=== PATIENT | female | born 1960 | race Caucasian/White ===

== ENCOUNTER 2019-02-25 03:28 | Inpatient (IN) ==
[2019-02-25] MEDS ORDERED: methylPREDNISolone 125 MG/2 ML VIAL IV STA (03:41)
[2019-02-25] MEDS ORDERED: ALBUT/IPRATROP 3MG/0.5MG NEB 3 ML VIAL NEB ONE (03:43)
[2019-02-25 04:05] LABS: Basophils # (auto) 0.02 K/uL (0-0.2); Basophils % (auto) 0.2 %; Hematocrit (blood only) 41.7 % (37-47); Hemoglobin 14.6 g/dL (12.0-16.0); Immature Granulocytes # (auto) 0.02 K/uL (0.00-0.02); Immature Granulocytes % (auto) 0.2 %; Lymphocytes # (auto) 2.19 K/uL (1.2-3.4); Lymphocytes % (auto) 22.2 %; Mean Corpuscular Volume 86.3 fL (80-100); Mean Platelet Volume 11.8 fL (7.4-10.4); Monocytes # (auto) 1.37 K/uL (0.11-0.59); Monocytes % (auto) 13.9 %; Neutrophils # (auto) 6.05 K/uL (1.4-6.5); Neutrophils % (auto) 61.5 %; Platelet Count 288 K/uL (130-400); RDW Coefficient of Variation 12.7 % (11.5-14.5); RDW Standard Deviation 40.2 fL (36.4-46.3); Red Blood Count 4.83 M/uL (4.2-5.4); White Blood Count 9.85 K/uL (4.8-10.8)
[2019-02-25 04:26] LABS: Base Excess VBG 3.6 mEq/L; HCO3 VBG 30 mmol/L; PCO2 VBG 54 mmHg (38-50); PO2 VBG 31 mmHg; pH VBG 7.37 (7.36-7.41)
[2019-02-25 04:28] LABS: Albumin Level 3.8 gm/dl (3.4-5.0); BUN Creatinine Ratio 12.3 (10-20); Bilirubin Direct 0.2 mg/dl (0-0.2); Calcium 9.2 mg/dl (8.5-10.1); Creatinine Clr Calc Pharmacy 68.8 ml/min; Est GFR (African American) 72.9; Est GFR (Non-African American) 62.9; Magnesium 1.8 mg/dl (1.8-2.4); Oxygen Saturation VBG < 60.0 %; Potassium 3.6 mmol/L (3.5-5.1)
[2019-02-25 04:36] LABS: Bilirubin,Total 0.5 mg/dl (0.2-1); Total Protein 7.6 gm/dl (6.4-8.2); Troponin I 0.053 ng/ml (0-0.045)
[2019-02-25 04:46] LABS: Influenza A virus by PCR Neg for Influ A (Neg); Influenza B virus by PCR Neg for Influ B (Neg)
[2019-02-25] MEDS ORDERED: OPTIRAY 320 125ml IV PRN (05:12)
[2019-02-25] MEDS ORDERED: LEVOFLOXACIN/D5W 750 MG/150 ML BAG IV STA (05:34)
[2019-02-25] MEDS ORDERED: HYDROCODONE/HOMATROPINE SYRUP 5MG/1.5MG 5ML UDP PO STA (05:40)
--- NOTE | 2019-02-25 07:30 | XRay Report ---
XR chest 1V portable HISTORY: 58 years-old Female Shob acute shortness of breath COMPARISON: CTA chest of same day TECHNIQUE: Portable AP view of the chest FINDINGS: The cardiomediastinal and hilar silhouettes are within normal limits. Mild central bronchial wall thi ckening. No pneumothorax, pleural effusion, overt pulmonary edema or focal airspace consolidation. IMPRESSION: 1. No focal airspace consolidation to suggest pneumonia. 2. Mild bronchial wall thickening suggestive of reactive airway disease or bronchitis. The above report was generated using voice recognition software. It may contain grammatical, syntax o r spelling errors. Electronically signed by: Al Alexandra M.D. 02/25/2019 7:29 AM
--- NOTE | 2019-02-25 07:36 | Emergency Department Note ---
Entered by Celena Lozano acting as a scribe for ED Provider Note Name: Rosangela Dueñas Age: 58 F Arrives Via: Private vehicle Informant: The patient CC: Shortness of breath HPI: A 58 year old female arrives for evaluation of worsening shortness of breath starting 1 hour ago. The patient reports that she is severely short of breath. She states that she has had a severe cough for the past day. She notes that she is nauseous. The patient reports that she has been using her nebulizer for the past day that has not helped her symptoms. She states that she tested positive for influenza on 02/11/19. She notes that she is a type 1 diabetic and that her sugars have been normal. She adds that she recently went to the ED for these symptoms but that they have never been this bad before. She denies chest pain, leg swelling, abnormal urinary problems and abnormal bowel movements. She denies recent travel. ROS: See above HPI for pertinent positives & negatives. A total of 10 systems reviewed and were otherwise negative. Past Medical History: Diabetes Past Surgical History: N/A Family History: N/A Social History: Feels safe at home. Never a smoker. Home Medications: Synthroid 125 mcg PO, Novolog Pump 1 dose continuous SUBCUT. Allergies Penicillins Physical: Vitals: BP: 159/95, Pulse: 85, Resp: 15, Temp: 97.5F, O2 Sat: 96, Delivery: CPAP Exam: GENERAL: Patient is severely unwell appearing and in severe distress. EYES: No scleral icterus, unremarkable pupils. ENT: Mucous membranes moist, no nasal congestion. NECK: No masses appreciated, no meningismus, trachea is midline. RESPIRATORY: Clear to auscultation and equal bilaterally. No wheeze, no rhonchi. Dyspnic, tachypnic, very tight lung sounds throughout with expiratory wheezing. CARDIOVASCULAR: Tachycardic rate. Regular rhythm. No murmurs, rubs, gallops appreciated. GASTROINTESTINAL: Abdomen soft, non-tender, no peritonitis. Bowel sounds positive. No masses appreciated. BACK: No midline tenderness, no CVA tenderness EXTREMITIES: Normal motion all extremities, no cyanosis, no edema. NEUROLOGIC: Alert and oriented, no acute motor or sensory deficits, no focal weakness, cranial nerves grossly intact. SKIN: No rash, no jaundice, no diaphoresis. ED Course: 0334: Prior Medical Record, Triage/Nursing Notes, Medications, Allergies reviewed by Me. Past medical records reviewed. The patient was evaluated in room A10, and a complete history and physical examination were performed. 0408: I reevaluated the patient who is on C-PAP with a continuous nebulizer. She states that her shortness of breath has improved somewhat but she still feels like she is working to breathe. 0439: I reevaluated the patient at this time. 0540: I reevaluated the patient at this time who reports that her cough is getting worse. She notes that she is agreeable to inpatient treatment. 0728: I reviewed the patient's case with Dr. Demario Jasso hospitalladarius. She will evaluate the patient for further management. Vital Signs: reviewed and remarkable for hypoxia, tachy Labs: Reviewed and remarkable for mildly elevated troponin Interventions: Saline Lock, Solumedrol 125mg IV, Levaquin 750mg IV, Duoneb continuous, CPAP Imaging: X ray results are stated below per my interpretation: Chest: 1 view: No infiltrate, no effusion, normal cardiac border. EKG: Per My interpretation: No previous for comparison: 78 bpm NSR without ectopy nor ischemia. QTC 446 [employer] Radiologist interpretation reviewed by me: CT PE: poor contrast though no clear evidence PE Consults: Dr Demario oFngist Blood pressure: Normal. No Referral necessary Disposition: Hospitalization Differentials: Etiologies such as infections, reactive airway disease, COPD, pneumonia, pleural effusion, pulmonary edema, ARDS, pneumothorax, CHF, cardiac ischemia, cardiac tamponade, dysrhythmia, anemia, pulmonary embolism, musculoskeletal, gastrointestinal process, as well as others were entertained. Medical Decision Making: Pleasant 58 yr old female with DMI and Hypothyroid arrives in acute respiratory distress. Flu 2 weeks ago followed by Bronchitis for which she had one dose steroids and course abx last week. Rapid worsening respiratory distress since morning. Hypoxia on arrival in severe distress. Rapidly placed on CPAP and started continuous neb. Gradually improving though unable to tolerate coming off CPAP for very long. Was given IV steroids. no clear evidence of pneumonia nor acute infection though I feel that abx indicated given level of respiratory distress/Failure. She was noted to have elevated trop, though normal EKG and I feel trop likely secondary to hypoxia rather than ACS at this time. She does not have overt PE on CTA though there is respiratory motion. As vastly improved on cpap I do not feel that anticoagulation indicated at this time. She is not septic by exam. She is comfortable though unable to come off cpap at this time. Hospitalist consulted for further management. Impression: Acute Respiratory Failure Reactive Airway Disease Hypoxia Elevated Troponin Critical Care Time: I have personally spent greater than 45 minutes of critical care time in the direct management of this patient. Acute respiratory failure with hypoxia requiring CPAP and rapid stabilization. This was a life/limb threatening event. This includes time spent evaluating patient, direct bedside care, chart review, placing orders, interpretation of diagnostic studies, discussion with consultants, patient, and family members, as well as other required patient management activities. This 45 minutes is in excess of all separately billable procedures. Adal Torres MD The scribe's documentation has been prepared under my direction and personally reviewed by me in its entirety. I confirm that the note above accurately reflects all work, treatment, procedures, and medical decision making performed by me. Impression & Plan Acute respiratory failure, RAD (reactive airway disease), Hypoxia, Elevated troponin Past Med/Surg History Medical History Diabetes Social History Preferred Language: Latvian Feels Safe at Home: Yes Smoking Status: Never smoker Results & Data Vital Signs Vital Signs - 24 hr 02/25/19 03:41 02/25/19 03:56 02/25/19 04:01 Temperature 36.4 C L Temperature Source Oral Sepsis Recent Fever Within 48 Hours No Sepsis New/Unexplained Change in Mental Status No Sepsis Action Taken by Nursing No Action Required Pulse Rate 94 H 76 87 Pulse Rate [Apical] Respiratory Rate 26 H 20 22 Respiratory Effort / Characteristics Labored Respiratory Depth Shallow Respiratory Pattern Blood Pressure 143/84 H 145/107 H 131/99 Blood Pressure Mean 103 119 109 Pulse Oximetry 72 L 100 98 Oxygen Delivery Method Non-rebreather CPAP CPAP Nebulizer Oxygen Flow Rate 0 Fraction of Inspired Oxygen 02/25/19 04:04 02/25/19 04:12 02/25/19 04:30 Temperature Temperature Source Sepsis Recent Fever Within 48 Hours Sepsis New/Unexplained Change in Mental Status Sepsis Action Taken by Nursing Pulse Rate 79 82 Pulse Rate [Apical] 75 Respiratory Rate 24 24 22 Respiratory Effort / Characteristics Spontaneous Accessory Muscle Use Labored Short of Breath SOB on Exertion Spontaneous Labored Short of Breath SOB on Exertion Respiratory Depth Shallow Respiratory Pattern Irregular Rapid/Shallow Blood Pressure 131/98 Blood Pressure Mean 109 Pulse Oximetry 96 96 96 Oxygen Delivery Method CPAP CPAP Oxygen Flow Rate Fraction of Inspired Oxygen 35 35 02/25/19 05:09 02/25/19 05:20 02/25/19 05:31 Temperature Temperature Source Sepsis Recent Fever Within 48 Hours Sepsis New/Unexplained Change in Mental Status Sepsis Action Taken by Nursing Pulse Rate 88 85 88 Pulse Rate [Apical] Respiratory Rate 23 15 23 Respiratory Effort / Characteristics Spontaneous Labored SOB on Exertion Respiratory Depth Normal Respiratory Pattern Regular Blood Pressure 159/95 H 116/90 Blood Pressure Mean 116 98 Pulse Oximetry 98 96 97 Oxygen Delivery Method CPAP CPAP Oxygen Flow Rate Fraction of Inspired Oxygen 35 02/25/19 06:01 02/25/19 06:31 Temperature Temperature Source Sepsis Recent Fever Within 48 Hours Sepsis New/Unexplained Change in Mental Status Sepsis Action Taken by Nursing Pulse Rate 81 87 Pulse Rate [Apical] Respiratory Rate 22 20 Respiratory Effort / Characteristics Respiratory Depth Respiratory Pattern Blood Pressure 115/82 134/90 Blood Pressure Mean 93 104 Pulse Oximetry 95 95 Oxygen Delivery Method CPAP CPAP Oxygen Flow Rate Fraction of Inspired Oxygen Home Medications Current Medication List: was personally reviewed by me Laboratory Data Attestation: I reviewed the patient's lab results. Result diagrams: 02/25/19 03:52 02/25/19 03:52 Lab Results 02/25/19 02/25/19 02/25/19 Range/Units 03:48 03:52 03:52 WBC 9.85 (4.8-10.8) K/uL RBC 4.83 (4.2-5.4) M/uL Hgb 14.6 (12.0-16.0) g/dL Hct 41.7 (37-47) % MCV 86.3 (80-100) fL MCH 30.2 (25-34) pg MCHC 35.0 (32-36) g/dL RDW Std Deviation 40.2 (36.4-46.3) fL RDW Coeff of Wilmar 12.7 (11.5-14.5) % Plt Count 288 (130-400) K/uL MPV 11.8 H (7.4-10.4) fL Immature Gran % (Auto) 0.2 % Neut % (Auto) 61.5 % Lymph % (Auto) 22.2 % Dawson % (Auto) 13.9 % Eos % (Auto) 2.0 % Baso % (Auto) 0.2 % Immature Gran # (Auto) 0.02 (0.00-0.02) K/uL Neut # (Auto) 6.05 (1.4-6.5) K/uL Lymph # (Auto) 2.19 (1.2-3.4) K/uL Dawson # (Auto) 1.37 H (0.11-0.59) K/uL Eos # (Auto) 0.20 (0-0.5) K/uL Baso # (Auto) 0.02 (0-0.2) K/uL VBG pH (7.36-7.41) VBG pCO2 (38-50) mmHg VBG pO2 mmHg VBG HCO3 mmol/L VBG O2 Saturation % VBG Base Excess mEq/L Barometric Pressure mm/Hg Sodium 130 L (136-145) mmol/L Potassium 3.6 (3.5-5.1) mmol/L Chloride 94 L (98-107) mmol/L Carbon Dioxide 31 (21-32) mmol/L Anion Gap 5.0 (3-11) BUN 12 (7-18) mg/dl Creatinine 1.00 (0.6-1.2) mg/dl Est Cr Clr Drug Dosing 68.8 ml/min Est GFR ( Amer) 72.9 Est GFR (Non-Af Amer) 62.9 BUN/Creatinine Ratio 12.3 (10-20) Glucose 167 H (70-99) mg/dl Lactate (0.4-2.0) mmol/L Calcium 9.2 (8.5-10.1) mg/dl Magnesium 1.8 (1.8-2.4) mg/dl Total Bilirubin 0.5 (0.2-1) mg/dl Direct Bilirubin 0.2 (0-0.2) mg/dl AST 16 (15-37) U/L ALT 30 (12-78) U/L Alkaline Phosphatase 87 (45-117) U/L Troponin I 0.053 H* (0-0.045) ng/ml Total Protein 7.6 (6.4-8.2) gm/dl Albumin 3.8 (3.4-5.0) gm/dl Influenza Type A (PCR) Neg for Influ A (Neg) Influenza Type B (PCR) Neg for Influ B (Neg) 02/25/19 02/25/19 Range/Units 03:52 03:52 WBC (4.8-10.8) K/uL RBC (4.2-5.4) M/uL Hgb (12.0-16.0) g/dL Hct (37-47) % MCV (80-100) fL MCH (25-34) pg MCHC (32-36) g/dL RDW Std Deviation (36.4-46.3) fL RDW Coeff of Wilmar (11.5-14.5) % Plt Count (130-400) K/uL MPV (7.4-10.4) fL Immature Gran % (Auto) % Neut % (Auto) % Lymph % (Auto) % Dawson % (Auto) % Eos % (Auto) % Baso % (Auto) % Immature Gran # (Auto) (0.00-0.02) K/uL Neut # (Auto) (1.4-6.5) K/uL Lymph # (Auto) (1.2-3.4) K/uL Dawson # (Auto) (0.11-0.59) K/uL Eos # (Auto) (0-0.5) K/uL Baso # (Auto) (0-0.2) K/uL VBG pH 7.37 (7.36-7.41) VBG pCO2 54 H (38-50) mmHg VBG pO2 31 mmHg VBG HCO3 30 mmol/L VBG O2 Saturation < 60.0 % VBG Base Excess 3.6 mEq/L Barometric Pressure 721.4 mm/Hg Sodium (136-145) mmol/L Potassium (3.5-5.1) mmol/L Chloride (98-107) mmol/L Carbon Dioxide (21-32) mmol/L Anion Gap (3-11) BUN (7-18) mg/dl Creatinine (0.6-1.2) mg/dl Est Cr Clr Drug Dosing ml/min Est GFR ( Amer) Est GFR (Non-Af Amer) BUN/Creatinine Ratio (10-20) Glucose (70-99) mg/dl Lactate 1.3 (0.4-2.0) mmol/L Calcium (8.5-10.1) mg/dl Magnesium (1.8-2.4) mg/dl Total Bilirubin (0.2-1) mg/dl Direct Bilirubin (0-0.2) mg/dl AST (15-37) U/L ALT (12-78) U/L Alkaline Phosphatase (45-117) U/L Troponin I (0-0.045) ng/ml Total Protein (6.4-8.2) gm/dl Albumin (3.4-5.0) gm/dl Influenza Type A (PCR) (Neg) Influenza Type B (PCR) (Neg) Administered Medications Ioversol (Optiray 320 125ml) 119 ml IV ONCE PRN PRN Reason: Interaction Checking Stop: 03/01/19 05:11 Last Admin: 02/25/19 05:13 Dose: 1 ml Documented by: [id number] Discontinued Medications Albuterol (Duoneb) 12 ml NEB ONE ONE Stop: 02/25/19 03:44 Last Admin: 02/25/19 04:04 Dose: 12 ml Documented by: [id number] Hydrocodone Bit/Homatropine Methylb (Hycodan) 5 ml PO NOW STA Stop: 02/25/19 05:41 Last Admin: 02/25/19 06:07 Dose: 5 ml Documented by: [id number] Levofloxacin/Dextrose (Levaquin/D5w) 750 mg in 150 mls @ 100 mls/hr IV NOW STA Stop: 02/25/19 07:03 Last Admin: 02/25/19 06:06 Dose: 100 mls/hr Documented by: [id number] Methylprednisolone (Solumedrol) 125 mg IV NOW STA Stop: 02/25/19 03:42 Last Admin: 02/25/19 03:58 Dose: 125 mg Documented by: [id number] Imaging Data Attestation: I personally reviewed and interpreted this imaging study as follows: ECG Data Attestation: I personally reviewed and interpreted this ECG as follows: Blood Pressure Blood Pressure Findings: Elevated blood pressure Blood Pressure Disposition: further management by hospitalist Discharge Plan Visit Data Chief Complaint: Shortness of Breath/Dyspnea Stated Complaint: SOB ED Provider: Adal Torres Discharge Problem: Acute respiratory failure, RAD (reactive airway disease), Hypoxia, Elevated troponin Patient Disposition: Being Evaluated by Hospitalist Forms Stand Alone Forms: My [facility] Prescriptions Prescriptions: No Action levothyroxine [Synthroid] 125 mcg Tablet 125 mcg PO DAILY RF: 0 Novolog Pump 1 dose Continuous Subcutaneous Infusion DIRECTED RF: 0 Referrals Referrals: PCP,NO [Primary Care Provider] - Discharge Problem: Acute respiratory failure Qualifiers: Respiratory failure complication: hypoxia Qualified Code(s): J96.01 - Acute respiratory failure with hypoxia RAD (reactive airway disease) Qualifiers: Asthma severity: severe Asthma persistence: persistent Asthma complication type: with acute exacerbation Qualified Code(s): J45.51 - Severe persistent asthma with (acute) exacerbation The scribe's documentation has been prepared under my direction and personally reviewed by me in its entirety. I confirm that the note above accurately reflects all work, treatment, procedures, and medical decision making performed by me.
--- NOTE | 2019-02-25 08:02 | CT Scan Report ---
CT angio chest PE protocol CT DOSE: 253.37 mGy.cm HISTORY: 58 years-old Female with PE. Acute short of breath TECHNIQUE: Multiple CTA images of the chest were obtained after the intravenous administration of 119 ml Optiray 320. Coronal and sagittal MIPS were obtained from the axial data set and were submitted for review. All measurements were obtained according to NASCET criteria. A dose lowering technique w as utilized adhering to the principles of ALARA. COMPARISON: Chest radiograph of same day FINDINGS: CTA: Heart is normal in size without pericardial effusion. Thoracic aorta is normal in both course and leeann iber without aneurysm or dissection. Patency of the imaged great vessels. Reflux of contrast into the IVC and hepatic veins. Evaluation of the pulmonary arterial tree is limited secondary to respiratory motion, notably the segmental and subsegmental branches are not well seen. No focal filling defects identified to suggest pulmonary thromboembolic disease. CT CHEST: No focal thyroid nodule or adenopathy. The inferior lung bases are outside the [id number]. No pneumothorax, pleural effusion or overt pul monary edema. There is moderate bilateral bronchial wall thickening. Minimal groundglass opacities wi th areas of mosaic attenuation noted bilaterally, notably within the right middle lobe and lingula. M ultifocal areas of mucous plugging. Central airways are generally patent. No acute process of the imaged upper abdomen. Breast parenchyma and soft tissues appear to be within normal limits. Bones appear to be intact. IMPRESSION: 1. No evidence of pulmonary thromboembolic disease. Please note however that the segmental and subseg mental branches are suboptimally visualized secondary to respiratory motion. 2. Moderate bilateral bronchial wall thickening with multifocal mucus plugging suggestive of bronchit is. 3. Minimal groundglass opacities of the right middle lobe and lingula with areas of mosaic attenuatio n are suggestive of atelectasis with air trapping. The above report was generated using voice recognition software. It may contain grammatical, syntax o r spelling errors. Electronically signed by: Al Alexandra M.D. 02/25/2019 8:01 AM
--- NOTE | 2019-02-25 09:25 | History & Physical Report ---
Date of Service February 25, 2019 Assessment & Plan (1) Acute respiratory failure: No prior history of asthma, however, presented with excessive coughing and respiratory distress 2 weeks after known flu infection. She is improved after a 1 hour albuterol nebulizer, Solu-Medrol 125 mg IV, 1 dose of cough syrup and Levaquin 750 mg IV given in the ER. She denies any fevers or chills recently and just finished a course of prednisone 40 mg daily, Z-Damon and has been using her nebulizers as prescribed. 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 She has no known history of asthma but pulmonary function tests when she is back at baseline with her primary care provider is definitely recommended. She has had issues with postinfectious reactive airway disease in the past. She is better after BiPAP but is still requiring 2 L oxygen via nasal cannula. She is currently not tachypneic and there is no conversational dyspnea which is reassuring. Plan will be to continue Solu-Medrol IV every 8 hours, scheduled nebulizer treatments, Robitussin-AC for coughing spells, Levaquin. (2) Hypoxia: No pneumonia or pulmonary embolus seen on CT. Findings are consistent with a bronchitis. Mucus is present. Continue plan as above. Continue supportive care with oxygen. (3) Elevated troponin: Likely secondary to demand ischemia. Will trend troponins and will order echocardiogram to ensure no regional wall motion abnormality are present. Chest pain is absent EKG reveals no evidence of acute ischemia. This is likely not ACS. (4) Diabetes: Type 1 diabetes, diagnosed 3 years ago. She is stable on a NovoLog insulin pump. Appreciate pharmacy assistance with using her insulin pump while she is hospitalized. (5) Hypothyroid: Continue Synthroid per home regimen (6) DVT prophylaxis: Lovenox daily Full code Disposition-plan for home once medically stable. May take 1-2 more days. DO Louisa Enriquez Hospitalist History of Present Illness Chief Complaint: Shortness of breath Primary Care Provider: Dilip Marrero-[facility] [phone] The patient is a 58-year-old female who was recently diagnosed with flu in mid January approximately 2 weeks ago. 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 She was not completely better and reported some rattling in her chest and a cough. The cough ended up getting worse 5 days ago and she was seen in an ER in [place]. She was given IV steroids and neb treatment and was sent home with nebulizers, Breo inhaler, Z-Damon and prednisone 40 x 5 days. She was compliant with this and started some lfaj-sik-plmucny Robitussin-DM yesterday. She developed excessive coughing around 5 PM and throughout the night found it harder and harder to breathe. She has no history of asthma and she is a lifelong non-smoker. She is very athletic and is motor coach tour operator who had come to see college to see her daughter play lacrosse locally. History includes type 1 diabetes diagnosed approximately 3 years ago. She is on a NovoLog insulin pump. She also has hypothyroidism. 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 CT scan in the ER revealed no evidence of acute pulmonary embolus and no evidence of pneumonia, however, there is moderate bilateral bronchial wall thickening with multifocal mucous plugging suggestive of bronchitis. Allergies Allergy/AdvReac Type Severity Reaction Status Date / Time Penicillins Allergy Mild Rash Verified 02/25/19 04:20 Home Medications Home Medications Medication Instructions Recorded Confirmed Type Novolog Pump 1 dose CONTINUOUS SUBCUTANEOUS 02/25/19 02/25/19 History INFUSION DIRECTED levothyroxine [Synthroid] 125 mcg PO DAILY 02/25/19 02/25/19 History Past Med/Surg History Medical History Diabetes Hypothyroidism Family History Father CHF (congestive heart failure) Social History Preferred Language: Moldovan Communication Ability: Effective Diabetes Educator Required: No Beliefs That Will Affect Care: None Current Living Situation: Spouse Other Information That Helps Us Care for You: No Feels Safe at Home: Yes Safety Concerns: Feels Safe At This Time Smoking Status: Never smoker Hx Alcohol Use: Yes Hx Substance Use: No Review of Systems At least ten systems were reviewed and negative except as indicated in HPI above. Physical Exam Vital Signs (Past 24 Hours): Last Vital Signs Temp 36.4 C L 02/25/19 03:41 Pulse 88 02/25/19 08:35 Resp 18 02/25/19 08:35 BP 124/78 02/25/19 08:35 Pulse Ox 94 02/25/19 08:35 CONSTITUTIONAL: WNWD, vitals as above, generally well-appearing EYES: normal conjuctivae, no scleral icterus ENT: oropharynx clear, no maxillary or ethmoid sinus tenderness, mucous membranes moist RESPIRATORY: some wheezing bilaterally with poor air movement at the lung bases bilaterally, no crackles. No conversational dyspnea on 2L oxygen, normal respiratory effort currently (after neb and BIPAP in ER) CARDIOVASCULAR: regular rate and rhythm, S1 and 2 heard without murmurs, gallop s or rubs, no JVD, no peripheral edema GASTROINTESTINAL: normal bowel sounds, soft, nontender, nondistended, +insulin pump MUSCULOSKELETAL: strength 5/5 throughout, head is normocephalic and atraumatic SKIN: warm and dry NEUROLOGIC: CN 2-12 grossly intact, normal cognition, normal speech, no gross focal deficits. PSYCHIATRIC: alert cooperative and oriented to person, place and time. Results & Data Laboratory Results Short CBC 02/25/19 Range/Units 03:52 WBC 9.85 (4.8-10.8) K/uL Hgb 14.6 (12.0-16.0) g/dL Hct 41.7 (37-47) % Plt Count 288 (130-400) K/uL BMP 02/25/19 03:52 Sodium 130 L Potassium 3.6 Chloride 94 L Carbon Dioxide 31 BUN 12 Creatinine 1.00 Glucose 167 H Calcium 9.2 Cardiac Enzymes 02/25/19 Range/Units 03:52 Troponin I 0.053 H* (0-0.045) ng/ml Liver Function 02/25/19 Range/Units 03:52 Total Bilirubin 0.5 (0.2-1) mg/dl Direct Bilirubin 0.2 (0-0.2) mg/dl AST 16 (15-37) U/L ALT 30 (12-78) U/L Alkaline Phosphatase 87 (45-117) U/L Albumin 3.8 (3.4-5.0) gm/dl Medications Administered Current Inpatient Medications Ioversol (Optiray 320 125ml) 119 ml IV ONCE PRN PRN Reason: Interaction Checking Stop: 03/01/19 05:11 Last Admin: 02/25/19 05:13 Dose: 1 ml Documented by: Code Status & VTE Plan Code Status Full code VTE Prophylaxis Plan VTE Prophylaxis will be ordered: Yes Critical Care Time Critical Care Time: No (1) Acute respiratory failure Respiratory failure complication: hypoxia Qualified Code(s): J96.01 - Acute respiratory failure with hypoxia
[2019-02-25] MEDS ORDERED: NOVOLOG PUMP Continuous Subcutaneous Infusion SCH (10:18)
[2019-02-25] MEDS ORDERED: POLYETHYLENE (MIRALAX) 17 GM PACK PO PRN (10:18)
[2019-02-25] MEDS ORDERED: ACETAMINOPHEN 325 MG TAB PO PRN (10:18)
[2019-02-25] MEDS ORDERED: LORazepam 0.5 MG TAB PO PRN (10:18)
[2019-02-25] MEDS ORDERED: ONDANSETRON INJ 2 MG/ML 2 ML VIAL IV PRN (10:18)
[2019-02-25 10:45] LABS: Appearance Urine Clear (Clear); Bilirubin Urine Negative (Negative); Blood Urine Trace (Negative); Color Urine Yellow; Glucose Urine UA 3+ (Negative); Ketones Urine Trace (Negative); Leukocyte Esterase Urine Negative (Negative); Nitrite Urine Negative (Negative); Protein Urine Negative (Negative); Urobilinogen Urine Negative (Negative); pH Urine 5.5 (4.5-7.5)
[2019-02-25] MEDS: ALBUT/IPRATROP 3MG/0.5MG NEB 3 ML VIAL NEB SCH ×3 (10:47→19:40)
[2019-02-25] MEDS: SODIUM CHLORIDE 0.9% 1000ML 1,000 ML IV SCH ×2 (11:04→21:30)
[2019-02-25] MEDS ORDERED: PHARMACY GLYCEMIC MGMT CONSULT PRN (11:09)
[2019-02-25] MEDS ORDERED: INSULIN GLARGINE SOLOSTAR 100 UNITS/ML 3 ML PEN SC STA (11:20)
--- NOTE | 2019-02-25 11:39 | Pharmacy Report ---
Glycemic Control Consultation - Date of Service February 25, 2019 - Scope Scope: Glycemic Pharmacist consulted by Dr Hanks on 02/25/19 for glycemic control and to write orders per [facility] inpatient glycemic control protocol - Objective Weight: 81.1 kg Accuchecks BSG (last 24hrs): 02/25/19 03:52 Glucose 167 H Laboratory Data (last 24hrs): 02/25/19 03:52 Potassium 3.6 Carbon Dioxide 31 Anion Gap 5.0 Creatinine 1.00 Est Cr Clr Drug Dosing 68.8 - Recent Pertinent Medications Outpatient Anti-diabetic Regimen: * Novolog Pump with CGM: 10.875u over 24hrs, CF: 75, CR 16, Goal range 110- 120mg/dL - Assessment & Plan Assessment & Plan: ASSESSMENT: * Ms. Dueñas is a 58yo F diagnosed with latent autoimmune diabetes 3 years ago. PMHx consistent with ZAN, Hypothyroidism. She p/w acute respiratory failure, hypoxia. 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 She is now on levaquin and Solumedrol 40mg q8. * I did meet with her bedside and obtained her pump settings. Basal rate=.45u/hr (~11u per 24hr period), CF=75, CR=16. By her own admission she is extremely brittle and prone to extreme highs and extreme lows. She is agreeable to removing her insulin pump and trying basal/bolus. I did mention the possibility of an insulin infsn and she would strongly prefer we try basal/bolus first. Given the complexity of her glycemic status we will start with conservative doses of lantus and novolog. PLAN FOR INPATIENT GLYCEMIC CONTROL: * Holding pump * Basal insulin * Lantus 8 units X1 * Bolus insulin * NovoLog per scale ACHS or Q6hrs while NPO * Goal Range: Low 140 mg/dL - High 180 mg/dL * Correction Factor: 55 mg/dL/unit * Nutritional / Prandial insulin per carb ratio of 1 unit per 18 grams CHO consumed * Please note that the plan above was derived based on current level of insulin resistance and hospital stress. These recommendations are appropriate for inpatient admission only. Plan of care upon discharge will need to be reassessed to avoid potential outpatient hypo/hyperglycemia. Thank you.
[2019-02-25 11:57] LABS: Prothrombin Time 10.7 Seconds (9.0-12.0)
[2019-02-25] MEDS: LEVOTHYROXINE SODIUM 125 MCG TABLET PO SCH (11:58)
[2019-02-25] MEDS: methylPREDNISolone 40 MG in SYRINGE 0 ML IV SCH ×2 (11:59→20:20)
[2019-02-25 12:05] LABS: Bacteria Urine Negative (Negative); Epithelial Cell Urine 0-5 /lpf (0-5); RBC Urine 0-4 /hpf (0-4); WBC Urine 0-5 /hpf (0-5)
[2019-02-25] MEDS: GUAIFENESIN/CODEINE 200MG/20MG 10ML UDC PO PRN ×2 (13:21→21:34)
[2019-02-25] MEDS: INSULIN ASPART 100 UNITS/ML 3 ML PEN SC SCH ×3 (13:23→21:28)
[2019-02-25] MEDS: ENOXAPARIN INJ 40 MG/0.4 ML SYR SQ SCH (13:25)
[2019-02-26] MEDS: INSULIN ASPART 100 UNITS/ML 3 ML PEN SC SCH ×4 (00:10→12:53)
[2019-02-26] MEDS: methylPREDNISolone 40 MG in SYRINGE 0 ML IV SCH ×2 (04:19→12:52)
[2019-02-26] MEDS: GUAIFENESIN/CODEINE 200MG/20MG 10ML UDC PO PRN (04:19)
[2019-02-26] MEDS ORDERED: LEVOFLOXACIN/D5W 750 MG/150 ML BAG IV SCH (06:00)
[2019-02-26] MEDS: LEVOTHYROXINE SODIUM 125 MCG TABLET PO SCH (06:03)
[2019-02-26 06:39] LABS: Hematocrit (blood only) 36.8 % (37-47); Hemoglobin 12.5 g/dL (12.0-16.0); Mean Corpuscular Volume 86.6 fL (80-100); Mean Platelet Volume 11.4 fL (7.4-10.4); Platelet Count 266 K/uL (130-400); RDW Coefficient of Variation 12.7 % (11.5-14.5); RDW Standard Deviation 40.5 fL (36.4-46.3); Red Blood Count 4.25 M/uL (4.2-5.4); White Blood Count 9.61 K/uL (4.8-10.8)
[2019-02-26 07:24] LABS: Calcium 8.4 mg/dl (8.5-10.1); Creatinine Clr Calc Pharmacy 70.5 ml/min; Est GFR (African American) 75.7; Est GFR (Non-African American) 65.3; Potassium 4.4 mmol/L (3.5-5.1)
[2019-02-26] MEDS: ALBUT/IPRATROP 3MG/0.5MG NEB 3 ML VIAL NEB SCH ×3 (07:28→15:03)
[2019-02-26] MEDS: SODIUM CHLORIDE 0.9% 1000ML 1,000 ML IV SCH (07:33)
[2019-02-26 08:15] LABS: Estimated Average Glucose 177 mg/dl; Hemoglobin A1C 7.8 % (4.5-5.6)
[2019-02-26] MEDS: ENOXAPARIN INJ 40 MG/0.4 ML SYR SQ SCH (08:38)
--- NOTE | 2019-02-26 08:54 | Pharmacy Report ---
Pharmacy Glycemic Short Note 2 - Date of Service February 26, 2019 - Glycemic Short BSG Results (Last 24 hours): 02/25/19 02/25/19 02/25/19 12:05 15:13 16:40 Glucose POC Glucose 222 H 248 H 261 H 02/25/19 02/26/19 02/26/19 20:36 00:05 04:09 Glucose POC Glucose 330 H 230 H 246 H 02/26/19 02/26/19 06:14 07:42 Glucose 291 H POC Glucose 296 H OUTPATIENT ANTIDIABETIC REGIMEN: * Novolog insulin pump; basal rate 0.45 units/hr (~11units basal/day); CF 75mg/dL/unit; CR 1 unit per 16gm CHO consumed * A1c = 7.8% 02/26/19 ASSESSMENT: * ZAN admitted w/ hypoxic resp failure, recent h/o influenza * Pt was initiated on high dose IV steroids yesterday, along with IV Levofloxacin * Steroids led to rapid rise in BSG. Patient's insulin pump was d/c'd and SQ basal/bolus regimen was initiated to combat rising BSGs in light of increased insulin resistance. * Pt reported a h/o "brittle" diabetes with large fluctuations in BSGs. * Fasting BSG 298 this AM with 8 units of Lantus on board + 6 units of Novolog correction given between last PM and this AM. Will continue to titrate basal dose upwards * CF and CR doses will be increased today and based upon pt weight and moderate stress level. Additional BSG checks will be added overnight as well. PLAN FOR INPATIENT GLYCEMIC CONTROL: * Hold outpatient oral diabetes medications * Basal insulin (increased dose) * Lantus 14 units SQ AM * Bolus insulin (increased dose) * NovoLog per scale ACHS and at 0000,0400 * Goal Range: Low 120 mg/dL - High 160 mg/dL * Correction Factor: 30 mg/dL/unit * Nutritional / Prandial insulin per carb ratio of 1 unit per 10 grams CHO consumed PLAN FOR DISCHARGE: * may resume home insulin pump. she may need to adjust or suspend basal rate if basal insulin given in the prior 24 hrs before discharge.
[2019-02-26] MEDS ORDERED: INSULIN GLARGINE SOLOSTAR 100 UNITS/ML 3 ML PEN SC SCH (09:00)
[2019-02-26] MEDS ORDERED: INSULIN PROTOCOL GOAL RANGE ONE (12:18)
[2019-02-26] MEDS ORDERED: MODERATE STRESS LEVEL ONE (12:18)
[2019-02-26] MEDS: INSULIN REGULAR 250 UNITS in SODIUM CHLORIDE 0.9% 247.5 ML IV SCH ×2 (13:08→14:19)
--- NOTE | 2019-02-26 16:22 | Discharge Summary ---
Date of Service February 26, 2019 Admission HPI Per Admitting Provider The patient is a 58-year-old female who was recently diagnosed with flu in mid January approximately 2 weeks ago. 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 She was not completely better and reported some rattling in her chest and a cough. The cough ended up getting worse 5 days ago and she was seen in an ER in [place]. She was given IV steroids and neb treatment and was sent home with nebulizers, Breo inhaler, Z-Damon and prednisone 40 x 5 days. She was compliant with this and started some ove [id number] Robitussin-DM yesterday. She developed excessive coughing around 5 PM and throughout the night found it harder and harder to breathe. She has no history of asthma and she is a lifelong non-smoker. 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 History includes type 1 diabetes diagnosed approximately 3 years ago. She is on a NovoLog insulin pump. She also has hypothyroidism. She otherwise denies any known sick on as she is a high school combination teacher she is exposed to many people. CT scan in the ER revealed no evidence of acute pulmonary embolus and no evidence of pneumonia, however, there is moderate bilateral bronchial wall thickening with multifocal mucous plugging suggestive of bronchitis. Admission Exam Per Admitting Provider Temp 36.4 C L 02/25/19 03:41 Pulse 88 02/25/19 08:35 Resp 18 02/25/19 08:35 BP 124/78 02/25/19 08:35 Pulse Ox 94 02/25/19 08:35 CONSTITUTIONAL: WNWD, vitals as above, generally well-appearing EYES: normal conjuctivae, no scleral icterus ENT: oropharynx clear, no maxillary or ethmoid sinus tenderness, mucous membranes moist RESPIRATORY: some wheezing bilaterally with poor air movement at the lung bases bilaterally, no crackles. No conversational dyspnea on 2L oxygen, normal respiratory effort currently (after neb and BIPAP in ER) CARDIOVASCULAR: regular rate and rhythm, S1 and 2 heard without murmurs, gallops or rubs, no JVD, no peripheral edema GASTROINTESTINAL: normal bowel sounds, soft, nontender, nondistended, +insulin pump MUSCULOSKELETAL: strength 5/5 throughout, head is normocephalic and atraumatic SKIN: warm and dry NEUROLOGIC: CN 2-12 grossly intact, normal cognition, normal speech, no gross focal deficits. PSYCHIATRIC: alert cooperative and oriented to person, place and time. Principal Diagnosis Acute respiratory failure 2/2 complicated bronchitis Discharge Data Allergies Allergy/AdvReac Type Severity Reaction Status Date / Time Penicillins Allergy Mild Rash Verified 02/25/19 04:20 Consultations 02/25/19 07:27 ED Decision to Admit Stat Ordered Studies 02/25/19 04:39 CT angio chest PE protocol Urgent Hospital Course (1) Acute respiratory failure: (2) Complicated bronchitis: (3) Hypoxia: (4) Elevated troponin: (5) Diabetes: (6) Hypothyroid: 58-year-old female with no history of lung disease arrived at the ER in acute respiratory failure. She had flu 2 weeks prior and had recently completed a course of prednisone and Z-Damon. Since then had had intermittent shortness of breath. Prior to arrival she had started Robitussin-DM [id number] and had developed a severe coughing attack that progressed into her severe shortness of breath. Initial vital signs were BP 159/95, pulse 85, afebrile. She was tachypneic with a respiratory rate of 26 and desaturated on room air to the low 70s. She was rapidly placed on CPAP and started on a continuous nebulizer treatment. She gradually improved and was able to come off CPAP after a couple hours. IV steroids were started and she was admitted to the [facility]. There was a mild troponin elevation, 0.05, seen on lab work which was stable without evolution on serial testing. EKG did not reveal evidence of ischemia and her elevated troponin was thought secondary to demand ischemia secondary to hypoxia rather than ACS. She did not have an overt PE on CT angiogram of the chest. Additionally an echocardiogram was performed revealing a normal ejection fraction 60-65% with no regional wall motion abnormalities that were seen. She was continued on Solu-Medrol 40 mg IV every 8 hours, scheduled duo nebs and Levaquin 750 mg IV. As she was a type I diabetic on insulin pump she was transitioned to basal and bolus overseen by the inpatient glycemic pharmacist. However, her blood sugar began to rise on hospital day 2 and she required a short-term insulin drip. At that point she had improved to room air and was oxygenating well and at baseline. Her coughing had improved significantly. She was feeling at baseline and ready for discharge. She was transitioned to oral prednisone. Her insulin pump was turned back on and a short overlap occurred with her pump and the insulin drip. Final blood sugar prior to discharge was 171. At time of discharge she was mentating and ambulating at baseline and was tolerating p.o. She was hemodynamically stable and afebrile and all symptoms had resolved or were significantly improved. She was sent home in stable condition with close primary care follow-up recommended. She did mention she had a primary care follow-up appointment with her physician in [place], [place] the next day. It was strongly recommended she undergo pulmonary function testing when she was back to baseline in the next few weeks. She verbalized understanding with intent to comply. Total Time Total Time Spent Total Time Spent (In Minutes): 60 Total Time Includes: Examination of the Patient, Discharge Planning, Medication Reconciliation and Communication With Other Providers Discharge Plan Discharge Items Patient Disposition: Home - Self-Care Reason For Visit: ASTHMA EXACERBATION Discharge Diagnosis: Acute respiratory failure 2/2 complicated bronchitis Condition: Good Discharge Goals: Improve function Activity: Resume your previous activity Non-emergency contact: Primary Care Provider Call non-emergency contact if: you have any medication questions, your symptoms worsen, your pain is not controlled, your pain is worsening, your pain is unusual for you, your pain is concerning for you and you have a fever Follow-up/Referrals: Dilip Marrero [Other] - 02/27/19 2:00 pm Diet: Carb Count or DM1 Addtl Provider Instructions: Please take all medications as instructed on discharge list below. Please start taking the LEVAQUIN (antibiotic) and the PREDNISONE tomorrow, 02/27. They are daily medications and you were already dosed on 02/26. Please follow-up with your primary care physician as scheduled later this week. When you are 100% improved from this illness, it is recommended that you undergo some pulmonary function testing. Please check your blood sugar SIX times daily for the next 2-3 days as instructed by the glycemic pharmacist. It is recommended that you double your typical carbohydrate coverage for meals over the next 24 hours. Please note that you will be on PREDNISONE which is a steroid and will increase your blood sugar. It was a pleasure taking care of you! Please call if you have any questions or problems. You can reach a [facility] hospitalist on duty at [facility] 24 hours a day by calling [phone]. Take care of yourself. Adriana Hanks, DO [facility] Hospitalist Prescriptions: New codeine-guaifenesin [Cheratussin AC] 10-100 mg/5 mL Liquid 10 ml PO Q6H PRN (Reason: cough) Qty: 120 RF: 0 albuterol sulfate 90 mcg/actuation aerosol powdr breath activated 2 inha INH Q6H PRN (Reason: shortness of breath or wheezing) Qty: 1 RF: 0 albuterol sulfate 2.5 mg /3 mL (0.083 %) solution for nebulization 2.5 mg INH Q6H PRN (Reason: shortness of breath or wheezing) Qty: 75 RF: 0 levofloxacin [Levaquin] 750 mg tablet 750 mg PO DAILY 3 Days Qty: 3 RF: 0 prednisone 20 mg tablet 40 mg PO DAILY 5 Days Qty: 10 RF: 0 Continued levothyroxine [Synthroid] 125 mcg Tablet 125 mcg PO DAILY RF: 0 Novolog Pump 1 dose Continuous Subcutaneous Infusion DIRECTED RF: 0 Stand-Alone Forms: My [facility]Other Patient Handouts: Bronchitis Acute Dc Discharge Orders: Discharge Order (Routine); Ordered 02/26/19 Ordered By: Adriana Hanks Admission Data Admit Date/Time: 02/25/19 07:55 Attending Provider: Adriana Hanks Admit Provider: Adriana Hanks Primary Care Provider: PCP,NO Other Providers: Adriana Hanks Service: Telemetry Other Interventions: Discharge Summary Assessment (RN) Last Done: 02/26/19 16:23 DC Date/Time DO NOT enter until pt leaves facility: 02/26/19 16:45
[2019-02-26] MEDS ORDERED: INSULIN ASPART 100 UNITS/ML 3 ML PEN SC SCH (18:00)
[2019-02-27] MEDS ORDERED: INSULIN ASPART 100 UNITS/ML 3 ML PEN SC SCH
== END 2019-02-26 16:45 | disposition home or self-care (01) | DRG 189 ==
LOC: ED 03:28 → 2N 07:55